=== PATIENT | male | born 1945 | race Hispanic/Latino ===

== ENCOUNTER → 2022-12-01 | Outpatient (CLI) | payer OTHER | END | disposition home or self-care (01) | LOC: RAH 10:42 | PROVIDERS: ATTEND Family Medicine | DX: R05.9 Cough, unspecified (principal); J84.10 Pulmonary fibrosis, unspecified; M47.815 Spondylosis without myelopathy or radiculopathy, thoracolumbar region; I70.0 Atherosclerosis of aorta; R91.8 Other nonspecific abnormal finding of lung field | CPT/HCPCS: 71046 ==